=== PATIENT | male | born 2000 | race Caucasian/White ===

== ENCOUNTER 2021-01-31 19:52 | Emergency (ER) | payer MEDICAID ==
[~2021-01-31] VITALS: Ht 180.3 cm; Wt 63.6 kg
[2021-01-31] MEDS ORDERED: ketorolac tromethamine 15mg/ml inj. IM ONE (22:55)
[2021-01-31] MEDS ORDERED: GABA-530 PO (23:19)
[2021-01-31 23:41] VITALS: BP 115/60
== END 2021-01-31 23:43 | disposition home or self-care (01) ==
LOC: ER 19:53 → EDBD 19:53 → ER 23:43
DX: M54.2 Cervicalgia (principal); M54.9 Dorsalgia, unspecified; R07.89 Other chest pain; Z88.1 Allergy status to other antibiotic agents; Z79.899 Other long term (current) drug therapy
CPT/HCPCS: 71045; 96372; 99283; J1885

== ENCOUNTER 2022-08-08 15:16 | Emergency (ER) | payer SELFPAY ==
[~2022-08-08] VITALS: Ht 180.3 cm; Wt 64.5 kg
[~2022-08-08 15:16] MED LIST: GABA-530 PO
[2022-08-08 15:57] VITALS: BP 118/66
== END 2022-08-08 18:14 | disposition left against medical advice (07) ==
LOC: ER 15:17
DX: S01.91XA Laceration without foreign body of unspecified part of head, initial encounter (principal); Z53.21 Procedure and treatment not carried out due to patient leaving prior to being seen by health care provider; X58.XXXA Exposure to other specified factors, initial encounter; Y93.9 Activity, unspecified; Y92.9 Unspecified place or not applicable; Y99.9 Unspecified external cause status
CPT/HCPCS: 70450

== ENCOUNTER 2022-09-30 18:20 | Emergency (ER) | payer BC, MEDICAID ==
[~2022-09-30] VITALS: Ht 180.3 cm; Wt 65.9 kg
[2022-09-30] MEDS ORDERED: HYDROcodone/acetaminophen 5mg/325mg tablet PO ONE (21:15)
--- NOTE | 2022-09-30 21:36 | NUR ---
PT. DECLINES CONTACT WITH CHERIE.
[2022-09-30 21:44] VITALS: BP 113/62
== END 2022-09-30 23:27 | disposition home or self-care (01) ==
LOC: ER 18:20 → EEVIPCON 18:20 → ER 23:27
DX: S06.0X1A Concussion with loss of consciousness of 30 minutes or less, initial encounter (principal); R07.81 Pleurodynia; R51.9 Headache, unspecified; Z88.1 Allergy status to other antibiotic agents; Y04.8XXA Assault by other bodily force, initial encounter; Y93.89 Activity, other specified; Y92.89 Other specified places as the place of occurrence of the external cause; Y99.8 Other external cause status
CPT/HCPCS: 70450; 71101; 99284

== ENCOUNTER 2024-10-22 00:19 | Emergency (ER) | payer BC, MEDICAID ==
[~2024-10-22] VITALS: Ht 180.3 cm; Wt 65.9 kg
[2024-10-22 00:27] VITALS: BP 144/71; PULSE 133; RESP 19; O2SAT 96
[2024-10-22] MEDS ORDERED: LIDOcaine 0.5% W/epiNEPHrine 1:200,000 50ml vial IJ ONE (01:30)
[2024-10-22] MEDS ORDERED: LIDOCAINE 1%/EPI 1:100,000 inj. 10 ML multi-dose vial IJ ONE (01:35)
[2024-10-22] MEDS: LIDOcaine 1% W/epiNEPHrine 1:100,000 20ml vial SQ ONE (01:43)
[2024-10-22] MEDS: HYDROcodone/acetaminophen 10/325mg tab PO ONE (02:29)
[2024-10-22 02:35] VITALS: TEMP 97.9
[2024-10-22] MEDS ORDERED: SULF1TAB49 PO (02:49)
[2024-10-22] MEDS: sulfamethoxazole/trimethoprim DS (800/160mg) tablet PO ONE (03:11)
== END 2024-10-22 03:13 | disposition home or self-care (01) ==
LOC: ER 00:20
DX: S61.216A Laceration without foreign body of right little finger without damage to nail, initial encounter (principal); S51.812A Laceration without foreign body of left forearm, initial encounter; Z88.0 Allergy status to penicillin; W25.XXXA Contact with sharp glass, initial encounter; Y93.89 Activity, other specified; Y92.89 Other specified places as the place of occurrence of the external cause; Y99.8 Other external cause status
CPT/HCPCS: 12004; 99283; A6258; A6446; A6449

== ENCOUNTER 2024-10-28 22:54 | Emergency (ER) | payer BC, MEDICAID ==
[~2024-10-28] VITALS: Ht 182.9 cm; Wt 71.1 kg
[~2024-10-28 22:54] MED LIST changes: +SULF1TAB49 PO
[2024-10-28 23:01] VITALS: BP 165/96; PULSE 79; RESP 15; O2SAT 98
== END 2024-10-28 23:42 | disposition home or self-care (01) ==
LOC: ER 22:55
DX: Z48.00 Encounter for change or removal of nonsurgical wound dressing (principal); Z88.0 Allergy status to penicillin
CPT/HCPCS: 99281

== ENCOUNTER 2025-05-01 23:59 | Emergency (ER) | payer BC, MEDICAID ==
[~2025-05-01] VITALS: Ht 182.9 cm; Wt 71.0 kg
[~2025-05-01 23:59] MED LIST changes: -SULF1TAB49 PO
[2025-05-02 00:41] VITALS: BP 129/89; PULSE 84; RESP 20; TEMP 99; O2SAT 100
== END 2025-05-02 03:08 | disposition left against medical advice (07) ==
LOC: ER 23:59
DX: M79.632 Pain in left forearm (principal); Z88.0 Allergy status to penicillin; Z53.21 Procedure and treatment not carried out due to patient leaving prior to being seen by health care provider